=== PATIENT | male | born 1975 | race Caucasian/White ===

== ENCOUNTER 2020-02-06 02:01 | Emergency (ER) | payer SELFPAY ==
[~2020-02-06] VITALS: Ht 185.4 cm; Wt 95.3 kg
[2020-02-06 02:14] VITALS: Ht 185.4 cm; Wt 95.3 kg
[2020-02-06 03:04] LABS: BASOPHIL % 0.3 % (0-2); PLATELET COUNT 273 x10^3mcL (130-400); RED CELL DISTRIBUTION WIDTH 12.4 % (11.5-14.5)
[2020-02-06 03:08] LABS: UA SPECIFIC GRAVITY >=1.030 (1.005-1.035); microscopic required? YES; urine erythrocyte 3+ (NEGATIVE)
[2020-02-06 03:13] LABS: CALCIUM 8.7 mg/dL (8.5-10.1); CARBON DIOXIDE 26.5 mmol/L (21-32); CHLORIDE SERUM 99 mmol/L (98-107); GFR1 > 60 mL/min; GLUCOSE SERUM 124 mg/dL (74-106); POTASSIUM SERUM 3.1 mmol/L (3.5-5.1); SODIUM SERUM 136 mmol/L (136-145)
[2020-02-06 03:17] LABS: ALBUMIN 3.9 g/dL (3.4-5.0); ALKALINE PHOSPHATASE 73 U/L (46-116); ALT/SGPT 34 U/L (16-63); AST/SGOT 16 U/L (15-37); BILIRUBIN TOTAL 1.3 mg/dL (0.20-1.00); TOTAL PROTEIN, SERUM 7.3 g/dL (6.4-8.2)
[2020-02-06 05:41] VITALS: BP 110/57
== END 2020-02-06 05:41 | disposition home or self-care (01) ==
LOC: ED 02:01
PROVIDERS: Student in an Organized Health Care Education/Training Program
DX: N20.1 Calculus of ureter (principal)
CPT/HCPCS: J1885; J2270; J7030